=== PATIENT | female | born 1960 | race Caucasian/White ===

== ENCOUNTER → 2017-07-05 | Outpatient (CLI) | payer OTHER ==
[~2017-07-05] MED LIST: ASCO10004 PO; CYCL-259 PO; DIAZ5TAB4 PO; DIPH25CA61 PO; GUAI-103 PO; NORE1TAB7 PO; TRAM50TA2 PO; VITA1CAP PO; celebrex PEG; nature thyroid PO
== END | disposition home or self-care (01) ==
LOC: CFH 12:25
PROVIDERS: ATTEND Family Medicine
DX: Z12.31 Encounter for screening mammogram for malignant neoplasm of breast (principal)
CPT/HCPCS: 77067

== ENCOUNTER 2018-03-28 01:09 | Emergency (ER) | payer OTHER ==
[~2018-03-28] VITALS: Ht 165.1 cm; Wt 69.4 kg
[2018-03-28 01:12] VITALS: BP 131/66
== END 2018-03-28 01:57 | disposition home or self-care (01) ==
LOC: ED 01:20
DX: M79.642 Pain in left hand (principal); M79.641 Pain in right hand
CPT/HCPCS: 99282